=== PATIENT | male | born 1935 | race Caucasian/White ===

== ENCOUNTER 2017-10-02 06:22 | Emergency (ER) | payer MEDICARE, BC ==
[~2017-10-02] VITALS: Ht 182.9 cm; Wt 95.3 kg
[2017-10-02] MEDS ORDERED: LIDOCAINE 2% JELLY 10ML IN APPLICATOR. ONE (06:38)
[2017-10-02 07:33] LABS: BACTERIA,URINE 0 /HPF (0-FEW); BILIRUBIN,URINE NEG (NEG); CLARITY,URINE BLOODY; COLOR,URINE RED; GLUCOSE,URINE NEG (NEG); NITRITE,URINE NEG (NEG); RBC,URINE TNTC /HPF (0-2); SQUAMOUS EPITHELIAL CELL,UR OCC /LPF; UROBILINOGEN,URINE 0.2 mg/dL (0.2 mg/dL); WBC,URINE RARE /HPF (0-4)
--- NOTE | 2017-10-02 07:38 | PHYS DOC ---
General Chief Complaint: BLOOD IN URINE Stated Complaint: HEMATURIA Time Seen by MD: 07:02 Problems: History of Present Illness Initial Comments Patient is an 81-year-old male brought to the ED by his daughter with urinary retention. Patient arrives with lower abdominal/suprapubic discomfort and fullness, states he hasn't urinated in greater than 10 hours. He has history of BPH is status post prostatectomy used to follow with Dr. Giles who is now practicing in [place]. Patient has history of Parkinson's disease, hypertension, and "arrhythmia" as well as BPH, he is status post prostatectomy and has a pacemaker. He has also had a hip replacement in the past. He is not on any anticoagulation. Prior to the urinary retention starting approximately 10 hours ago he denies any symptoms , no abdominal or flank pain no fever chills sweats or body aches and the patient denies family history of renal or bladder cancer. He denies any unexplained weight loss or night sweats and his appetite has been normal. He's had no issues with bowel movements. Incidentally the patient did have a fall last week in the ice going outside to get the mail. He was unable to stand back up and it took him several hours to crawl back into the house, he has frostbite injuries at the distal aspects of several fingers of both hands. RN inserted Levi catheter upon patient arrival, it was not a traumatic catheter in the past easily according to the RN. There was no urine return initially however with a saline flush out to now there has been greater than 800 mL of bright red blood and clots and the Levi catheter continues to drain. ED vitals: 98.6, 104, 20, 102/68, 95% room air Urine micro-and urinalysis with culture, CBC, CMP, and coags ordered. I debated over imaging studies however ultrasound would not differentiate clot versus soft tissue mass and I feel patient needs cystoscopy evaluation for active bleed. I discussed this with the patient and his daughter and it is my opinion the patient would be best served by transfer to [facility] where he could see urology within the next 2 days for further evaluation. The patient and his daughter are in agreement and that 0731 I requested the staff call [facility] curriculum consultant hospitalist to assist in transfer. Timing/Duration: yesterday Severity/Quality: severe, cramping, fullness Location: suprapubic Radiation: none Activities at Onset: other Modifying Factors: worse with movement, worse with palpation, worse with urinating Associated Symptoms: abdominal pain, other Allergies: Coded Allergies: No Known Drug Allergies (Unverified , 10/18/15) Past Medical History Medical History: other (hypertension, BPH, Parkinson's disease, arrhythmia) Surgical History: other (pacemaker, total hip replacement, prostatectomy) Social History Smoker: non-smoker Alcohol: none Drugs: none Review of Systems Constitutional: denies chills, denies diaphoresis, denies fever, denies malaise Respiratory: denies cough, denies shortness of breath Cardiovascular: denies chest pain, denies palpitations Gastrointestinal: see HPI, denies constipation, denies diarrhea, denies nausea , denies vomiting Genitourinary: see HPI Musculoskeletal: denies back pain, joint pain (right hip), denies neck pain Skin: see HPI Psychiatric/Neurological: denies headache, denies numbness, denies paresthesia Hematologic/Lymphatic: denies blood clots, denies easy bleeding, denies easy bruising Physical Exam General Appearance: WD/WN, moderate distress HEENT: normal ENT inspection, pharynx normal Neck: non-tender, full range of motion, supple Cardiovascular/Respiratory: normal peripheral pulses, normal breath sounds, tachycardia Gastrointestinal: soft (palpable bladder with tenderness initially otherwise abdomen nondistended bowel sounds diminished negative Fiore negative McBurney) Rectal: deferred (status post prostatectomy) Male Genitals: normal genitalia, bleeding Back: no CVA tenderness, no vertebral tenderness Extremities: other (frostbite injuries to the distal fingers bilaterally) Neurologic/Psychiatric: subacute nurse II-XII nml as tested, alert, normal mood/affect, oriented x 3 Skin: normal color, warm/dry Orders, Labs, Meds 0746: I discussed the patient with curriculum consultant hospitalist at [facility] Dr. dickerson. After thorough discussion of the patient's history, as well as his ED presentation and exam findings he is in agreement the patient needs urological evaluation and cystoscopy as well. He accepts the patient for Medr admission and is aware that labs are pending at this time. I discussed these issues with the family who continued to be cooperative and agreeable. Impressions: Gross hematuria rule out active bleed Urinary retention History of BPH status post prostatectomy Departure Time of Disposition: 07:37 Disposition: 02 XFER SHT-TRM HOSP Diagnosis: gross hematuria rule out active bleed, BPH history Condition: STABLE Additional Instructions: EMS transfer to [facility] JOHN Sierra DO Oct 02, 2017 07:38
[2017-10-02 07:54] LABS: BASO % 0 % (0-3); EOS % 0 % (0-3); HEMATOCRIT 41.8 % (39.0-53.0); HEMOGLOBIN 13.8 g/dL (13.0-17.5); LYMPH # 0.8 x10^3/uL (1.0-4.8); LYMPH % 7 % (24-48); MEAN CORPUSCULAR HEMOGLOBIN 32 pg (25-35); MEAN CORPUSCULAR HGB CONC 33 g/dL (31-37); MEAN CORPUSCULAR VOLUME 97 fL (79-100); MONO # 0.9 x10^3/uL (0.0-1.1); MONO % 7 % (0-9); NEUT # 10.2 x10^3uL (1.8-7.7); NEUT % 85 % (31-73); PLATELET COUNT 221 x10^3/uL (140-400); RED BLOOD COUNT 4.31 x10^6/uL (4.30-5.70); RED CELL DISTRIBUTION WIDTH 12.6 % (11.5-14.5); WHITE BLOOD COUNT 11.9 x10^3/uL (4.0-11.0)
[2017-10-02 08:01] LABS: ALBUMIN 3.6 g/dL (3.4-5.0); CALCIUM 9.3 mg/dL (8.5-10.1); CREATININE 1.6 mg/dL (0.7-1.3); GFR 41.5; POTASSIUM 4.1 mmol/L (3.5-5.1); TOTAL BILIRUBIN 0.8 mg/dL (0.2-1.0); TOTAL PROTEIN 7.1 g/dL (6.4-8.2)
[2017-10-02] MEDS ORDERED: LIDOCAINE 2% TOPICAL JELLY 30GM TUBE. TP ONE (08:15)
[2017-10-02 08:35] VITALS: BP 109/67
== END 2017-10-02 08:42 | disposition short-term general hospital (02) ==
LOC: ER 06:22
DX: R33.9 Retention of urine, unspecified (principal); R31.0 Gross hematuria; N40.1 Benign prostatic hyperplasia with lower urinary tract symptoms; I10 Essential (primary) hypertension; Z90.79 Acquired absence of other genital organ(s); G20 Parkinson's disease; Z95.0 Presence of cardiac pacemaker
CPT/HCPCS: 36415; 51702; 80053; 81001; 85025; 85610; 85730; 99285-25